=== PATIENT | male | born 1970 | race African-American/Black ===

== ENCOUNTER 2017-06-24 09:00 | Inpatient (IN) | payer MEDICAID ==
[~2017-06-24] VITALS: Ht 170.2 cm; Wt 90.9 kg
[2017-06-24 09:20] VITALS: Ht 170.2 cm; Wt 90.9 kg
[2017-06-24] MEDS ORDERED: SOD CHLORIDE 0.9% 1,000 ML IV STA (09:44)
--- NOTE | 2017-06-24 09:44 | ERA ---
ER Documentation Chief Complaint Date/Time DATE: 06/24/17 TIME: 09:41 Chief Complaint pt here for gtube malfunction and needs replacement HPI 47-year-old man brought in by EMS from long term for dislodged gastrostomy tube. Patient has chronic dysphagia and respiratory failure requiring tracheostomy placement although he agreed spontaneously on blow-by oxygen. Patient has history of stroke and bilateral upper and lower extremity paralysis and contractures, gastrostomy to dislodged earlier today. HPI supplemented by reviewing past medical history long term records. ROS All systems reviewed and are negative except as per history of present illness. Medications Home Meds Reported Medications Acetaminophen* (Acetaminophen* Susp) 160 Mg/5 Ml Oral.susp, 640 MG GTB Q4 Y for PAIN OR TEMP ABOVE 38C, ML 06/24/17 Hypromellose (Pure & Gentle Eye Drops) 15 Ml Drops, 1 DROP OP QID, BOTTLE 06/24/17 Sennosides* (Senna Lax*) 8.6 Mg Tablet, 2 TAB GTB QHS, TAB 06/24/17 Clonidine Hcl* (Clonidine Hcl*) 0.1 Mg Tab, 0.1 MG GTB Q8, TAB HOLD SBP<110 06/24/17 Docusate Sodium* (Colace*) 100 Mg Capsule, 100 MG GTB BID, #60 CAP 06/24/17 Atorvastatin Calcium (Atorvastatin Calcium) 10 Mg Tablet, 10 MG GTB QHS, #30 TAB 06/24/17 Metoprolol Tartrate* (Lopressor*) 50 Mg Tab, 50 MG GTB BID, #60 TAB 06/24/17 Clopidogrel Bisulfate (Clopidogrel) 75 Mg Tablet, 75 MG GTB DAILY, #30 TAB 06/24/17 Amlodipine Besylate* (Amlodipine Besylate*) 10 Mg Tablet, 10 MG GTB DAILY, #30 TAB HOLD SBP<110 06/24/17 Discontinued Reported Medications Eyelid Cleanser Combination #9 (Systane) 1 Each Towelette, 1 DROP BOTH EYES QID , TOWELETTE 06/24/17 Allergies Allergies: Coded Allergies: No Known Allergy (Unverified , 06/24/17) PMhx/Soc Dysphagia with gastrostomy tube, history of stroke with bilateral upper and lower extremity paresis and upper/lower extremity contractures, hypertension, encephalopathy, respiratory failure with a tracheostomy tube [facility] Family History: No diabetes Physical Exam Vitals Vital Signs Date Time Temp Pulse Resp B/P Pulse Ox O2 Delivery O2 Flow Rate FiO2 06/24/17 11:09 4.0 06/24/17 09:20 98.0 85 20 132/92 100 Physical Exam GENERAL: Encephalopathic man, appears dehydrated, nontoxic, afebrile HEENT: Dry mucous membranes, pink conjunctiva, no cervical spine deformity, tracheostomy in place NEURO: Eyes open, bilateral upper and lower extremity contractures and paresis, pupils equal round reactive to light, nonverbal, encephalopathic CARDIAC: Tachycardic and regular, no murmurs rubs or gallops LUNGS: Clear bilaterally no wheezing crackles or stridor ABDOMEN: Soft nontender, no guarding, no rigidity, no rebound, no psoas sign no obturator sign. SKIN: Warm and dry to touch, no abrasions, contusions, or hematomas, no lacerations, no ecchymosis, no target lesions, and without ulcers EXTREMITIES: Bilateral lower extremity contractures and diffuse muscular wasting , distal pulses equal bilateral PSYCH: Unable to assess Result Diagram: 06/24/17 1050 06/24/17 1011 Results 24 hrs Laboratory Tests Test 06/24/17 10:11 06/24/17 10:50 Prothrombin Time 12.7Sec Prothrombin Time Ratio 1.0 INR International Normalized Ratio 0.95 Sodium Level 140mmol/L Potassium Level 4.4mmol/L Chloride Level 102mmol/L Carbon Dioxide Level 29mmol/L Anion Gap 13 Blood Urea Nitrogen 19mg/dl Creatinine 0.87mg/dl Glucose Level 102mg/dl Calcium Level 9.5mg/dl Total Bilirubin 0.3mg/dl Direct Bilirubin 0.00mg/dl Indirect Bilirubin 0.3mg/dl Aspartate Amino Transf (AST/SGOT) 39IU/L Alanine Aminotransferase (ALT/SGPT) 43IU/L Alkaline Phosphatase 107IU/L Troponin I < 0.012ng/ml Total Protein 8.6g/dl Albumin 4.2g/dl Globulin 4.40g/dl Albumin/Globulin Ratio 0.95 Lipase 25U/L White Blood Count 8.310^3/ul Red Blood Count 5.1410^6/ul Hemoglobin 15.6g/dl Hematocrit 46.4% Mean Corpuscular Volume 90.3fl Mean Corpuscular Hemoglobin 30.4pg Mean Corpuscular Hemoglobin Concent 33.6g/dl Red Cell Distribution Width 11.9% Platelet Count 91686^3/UL Mean Platelet Volume 10.5fl Neutrophils % 71.0% Lymphocytes % 17.3% Monocytes % 8.2% Eosinophils % 2.5% Basophils % 0.6% Nucleated Red Blood Cells % 0.0/100WBC Neutrophils # 5.910^3/ul Lymphocytes # 1.410^3/ul Monocytes # 0.710^3/ul Eosinophils # 0.210^3/ul Basophils # 0.110^3/ul Nucleated Red Blood Cells # 0.010^3/ul Current Medications Medications (Trade) Dose Ordered Sig/Lissa Route PRN Reason Start Time Stop Time Status Last Admin Dose Admin Sodium Chloride (NS) 1,000 ml @ 1,000 mls/hr Q1H STAT IV 06/24/17 09:44 06/24/17 10:43 DC Procedures/MDM IV line was established patient was placed on awake overnight monitor rhythm strip revealed a sinus rhythm at about 90 bpm with upright P and T waves. Patient was afebrile. EKG performed, read by me revealed a normal sinus rhythm at 91 bpm, left axis deviation, narrow QRS complex, no concerning ST elevations or depressions noted. One AP view of the chest performed, read by me reveals no acute infiltrates, normal mediastinum, sharp costophrenic and cardiac borders, no air under the diaphragm. Tracheostomy in place. Otherwise unremarkable chest x-ray. I attempted gastrostomy tube replacement although I was unsuccessful, difficult to replace. I administered 1 L normal saline intravenously for dehydration. CBC and electrolytes are normal, liver function tests are normal, troponin was negative.Patient will be admitted to [facility] for continued medical management GI consultation, patient admitted to Dr. Sims Departure Diagnosis: Primary Impression: Acute encephalopathy Additional Impressions: Acute respiratory failure Qualified Code: J96.01 - Acute respiratory failure with hypoxia and hypercapnia Dysphagia Qualified Code: R13.10 - Dysphagia, unspecified type Dislodged gastrostomy tube Dehydration Condition: XAVI Damon MD Jun 24, 2017 09:44
[2017-06-24] MEDS ORDERED: AMLO-147 GTB (10:37)
[2017-06-24] MEDS ORDERED: CLOP75TA27 GTB (10:38)
[2017-06-24] MEDS ORDERED: METO-429 GTB (10:38)
[2017-06-24] MEDS ORDERED: ATOR10TA65 GTB (10:39)
[2017-06-24] MEDS ORDERED: DOCU-144 GTB (10:40)
[2017-06-24] MEDS ORDERED: CLON-379 GTB (10:41)
[2017-06-24] MEDS ORDERED: SENN-53 GTB (10:45)
[2017-06-24] MEDS ORDERED: [UNRECOGNIZED DRUG - CODE] OP (10:46)
[2017-06-24] MEDS ORDERED: ACET160O41 GTB (10:47)
[2017-06-24] MEDS ORDERED: EYEL1TOW3 BOTH EYES (10:47)
--- NOTE | 2017-06-24 10:55 | RADRPT ---
PROCEDURE: Chest Radiograph. CLINICAL INDICATION: Abdominal pain TECHNIQUE: Single frontal chest radiograph. COMPARISON: None available FINDINGS: A tracheostomy tube is in place. The patient is mildly rotated. The heart is magnified.. Lung volum es are decreased in there is mild left greater than right basilar atelectasis. No infiltrate or effu va is seen. The bones are intact. IMPRESSION: 1. Low lung volumes with basilar atelectasis. RPTAT: KK .Braeden Combs MD, Date Time Electronically viewed and signed by .Braeden Combs MD, MD on 06/24/2017 10:54 .B/
[2017-06-24 11:12] LABS: BASOPHIL # 0.1 10^3/ul (0.0-0.1); BASOPHILS % 0.6 % (0.0-2.0); EOSINOPHILS # 0.2 10^3/ul (0.0-0.5); EOSINOPHILS % 2.5 % (0.0-7.0); HEMATOCRIT 46.4 % (42.0-52.0); HEMOGLOBIN 15.6 g/dl (14.0-18.0); LYMPHOCYTES # 1.4 10^3/ul (0.8-2.9); LYMPHOCYTES % 17.3 % (15.0-51.0); MEAN CORPUSCULAR HEMOGLOBIN 30.4 pg (29.0-33.0); MEAN CORPUSCULAR HGB CONC 33.6 g/dl (32.0-37.0); MEAN CORPUSCULAR VOLUME 90.3 fl (82.0-101.0); MEAN PLATELET VOLUME 10.5 fl (7.4-10.4); MONOCYTE # 0.7 10^3/ul (0.3-0.9); MONOCYTES % 8.2 % (0.0-11.0); NEUTROPHIL # 5.9 10^3/ul (1.6-7.5); PLATELET COUNT 319 10^3/UL (140-415); RED BLOOD COUNT 5.14 10^6/ul (4.70-6.10); RED CELL DISTRIBUTION WIDTH 11.9 % (11.5-14.5); WHITE BLOOD COUNT 8.3 10^3/ul (4.8-10.8)
[2017-06-24 11:31] LABS: INR 0.95; PROTIME 12.7 Sec (12.2-14.2)
[2017-06-24 11:39] LABS: ALANINE AMINOTRANSFERASE 43 IU/L (13-69); ALBUMIN 4.2 g/dl (3.3-4.9); ALBUMIN/GLOBULIN RATIO 0.95; ALKALINE PHOSPHATASE 107 IU/L (42-121); ANION GAP 13 (8-16); ASPARTATE AMINO TRANSFERASE 39 IU/L (15-46); BILIRUBIN,INDIRECT 0.3 mg/dl (0-1.1); BILIRUBIN,TOTAL 0.3 mg/dl (0.2-1.3); BLOOD UREA NITROGEN 19 mg/dl (7-20); CALCIUM 9.5 mg/dl (8.4-10.2); CARBON DIOXIDE 29 mmol/L (21-31); CHLORIDE 102 mmol/L (97-110); CREATININE 0.87 mg/dl (0.61-1.24); GLUCOSE 102 mg/dl (70-220); POTASSIUM 4.4 mmol/L (3.5-5.1); SODIUM 140 mmol/L (135-144); TOTAL PROTEIN 8.6 g/dl (6.1-8.1)
[2017-06-24 11:53] LABS: TROPONIN-I < 0.012 ng/ml (0.00-0.12)
[2017-06-24] MEDS ORDERED: ONDANSETRON 4 MG INJ IV PRN (15:30)
[2017-06-24] MEDS ORDERED: ACETAMINOPHEN 1000MG/100ML IV 100 ML IVPB PRN (15:30)
--- NOTE | 2017-06-24 15:44 | HP ---
Date/Time of Note Date/Time of Note DATE: 06/24/17 TIME: 14:07 Assessment/Plan VTE Prophylaxis VTE Prophylaxis Intervention: SCD's Assessment/Plan Assessment/Plan Dysphagia with gastrostomy tube -Status post G-tube placement -Dislodged gastrostomy tube -Aspiration precautions -Admit to MedSurg -GI consult Dr. Mijares notified -We will hold off meds to be given via G-tube until get fixed -Admission orders are done -A.m. labs - respiratory failure with a tracheostomy tube - pulmonary consult- dr salgado notified - hypertension - hydralazine IV PRN - chronic kidney disease - stable labs -Acute encephalopathy-no acute issues continue to monitor -Acute respiratory failure-status post tracheostomy placement -We will get pulmonary consult, Dr. Robertson, notified -Dehydration-continues IV fluids, monitor labs - history of stroke with bilateral upper and lower extremity paresis and upper/ lower extremity contractures - SCD for DVT prophylaxis -Protonix for GI prophylaxis Plan of care discussed with Dr. Davis, staff HPI/ROS Admit Date/Time Admit Date/Time Hx of Present Illness This is a 47-year-old patient -SNF resident, with past history of respiratory failure with trach placement, chronic dysphagia , stroke, Bilateral upper and lower extremity paralysis and contractures is admitted with dislodged gastrostomy tube this morning. HPI supplemented by reviewing past medical history detention records. Patient is a poor historian due to his altered mental status. No reported fever, chills, vomiting reported ROS All systems reviewed and are negative except as per history of present illness. Allergies Allergies: Coded Allergies: No Known Allergy (Unverified , 06/24/17) ROS Subjective hx not possible: pt non-verbal PMH/Family/Social Past Medical History PMhx/Soc Dysphagia with gastrostomy tube, history of stroke with bilateral upper and lower extremity paresis and upper/lower extremity contractures, hypertension, encephalopathy, respiratory failure with a tracheostomy tube chronic kidney disease FmHx Family History: No diabetes Social History Smoking Status: Never smoker Exam/Review of Systems Vital Signs Vitals Vital Signs Date Time Temp Pulse Resp B/P Pulse Ox O2 Delivery O2 Flow Rate FiO2 06/24/17 11:09 4.0 06/24/17 09:20 98.0 85 20 132/92 100 Exam Constitutional: alert, non-verbal, other (Opens eyes only, does not follow commands) Respiratory: diminished breath sounds, other (Trach intact) Cardiovascular: nl pulses, regular rate and rhythm Gastrointestinal: non-tender, soft Musculoskeletal: muscle weakness Extremities: normal pulses Neurological: confused, other (history of stroke and bilateral upper and lower extremity paralysis and contractures) Labs Result Diagram: 06/24/17 1050 06/24/17 1011 TANYA FERNANDEZ Jun 24, 2017 15:25
[2017-06-24 15:49] VITALS: TEMP 99.1
[2017-06-24 16:24] VITALS: BP 137/91; RESP 22
[2017-06-24 16:40] VITALS: BP 124/76; PULSE 94; RESP 18
[2017-06-24] MEDS: FAMOTIDINE 20 MG INJ IV SCH (17:33)
[2017-06-24] MEDS: DEXTROSE 5%-0.45% NACL 1,000 ML IV SCH (17:35)
[2017-06-24] MEDS ORDERED: PENDING SANTYL ORDER FOR WOUND CARE XX PRN (18:00)
[2017-06-24 20:04] VITALS: BP 113/68; RESP 20
[2017-06-25 02:00] VITALS: BP 151/81; RESP 20
[2017-06-25] MEDS: DEXTROSE 5%-0.45% NACL 1,000 ML IV SCH ×4 (06:59→20:42)
[2017-06-25 07:59] VITALS: BP 122/78; RESP 18
[2017-06-25] MEDS: FAMOTIDINE 20 MG INJ IV SCH ×3 (08:35→20:41)
[2017-06-25 08:53] LABS: BASOPHIL # 0.1 10^3/ul (0.0-0.1); EOSINOPHILS # 0.2 10^3/ul (0.0-0.5); EOSINOPHILS % 4.1 % (0.0-7.0); HEMOGLOBIN 14.1 g/dl (14.0-18.0); LYMPHOCYTES # 1.5 10^3/ul (0.8-2.9); LYMPHOCYTES % 28.2 % (15.0-51.0); MEAN CORPUSCULAR HEMOGLOBIN 29.9 pg (29.0-33.0); MEAN CORPUSCULAR VOLUME 93.4 fl (82.0-101.0); MEAN PLATELET VOLUME 10.8 fl (7.4-10.4); MONOCYTE # 0.7 10^3/ul (0.3-0.9); NEUTROPHIL # 2.8 10^3/ul (1.6-7.5); NEUTROPHILS % 53.3 % (39.0-77.0); PLATELET COUNT 269 10^3/UL (140-415); RED BLOOD COUNT 4.71 10^6/ul (4.70-6.10); RED CELL DISTRIBUTION WIDTH 12.3 % (11.5-14.5); WHITE BLOOD COUNT 5.2 10^3/ul (4.8-10.8)
[2017-06-25 09:22] LABS: CALCIUM 9.1 mg/dl (8.4-10.2); POTASSIUM 4.2 mmol/L (3.5-5.1)
[2017-06-25] MEDS ORDERED: LIDOCAINE 1% (MPF) 5 ML VIAL SC ONE ×2 (11:30→12:30)
[2017-06-25 14:50] VITALS: BP 123/83; RESP 18
--- NOTE | 2017-06-25 17:31 | PN ---
Date/Time of Note Date/Time of Note DATE: 06/25/17 TIME: 17:24 Assessment/Plan VTE Prophylaxis VTE Prophylaxis Intervention: SCD's Lines/Catheters IV [facility] Peripheral IV Urinary Cath still in place: No Assessment/Plan Chief Complaint/Hosp Course Patient remains hemodynamically stable, IV access is a problem per nursing staff , if unable to obtain peripheral IV will initiate PICC line for IV fluids. Problems: Assessment/Plan -G-tube dislodgment and patient with dysphagia. Continue IV fluids. Dr. Mijares is following in gastroenterology consultation. Pending G-tube placement. -History of stroke with contractures and chronic encephalopathy -History of respiratory failure with tracheostomy, continue cool aerosol via T- tube, continue breathing treatments -Chronic kidney disease Further recommendations based on clinical course. Plan of care discussed with Dr. Sims. Exam/Review of Systems Vital Signs Vitals Vital Signs Date Time Temp Pulse Resp B/P Pulse Ox O2 Delivery O2 Flow Rate FiO2 06/25/17 14:50 98.3 69 18 123/83 99 06/25/17 12:48 Aerosol 5.0 28 T Tube Intake and Output 06/24/17 06/24/17 06/25/17 15:00 23:00 07:00 Intake Total 800 ml Balance 800 ml Exam Constitutional: non-verbal Head: normocephalic Neck: other (trach) Respiratory: normal air movement Cardiovascular: nl pulses Gastrointestinal: non-tender, other (G-tube stoma), soft Extremities: other (contracted) Neurological: other (Chronic encephalopathy) Results Result Diagram: 06/25/17 0825 06/25/17 0825 Results 24 hrs Laboratory Tests Test 06/25/17 08:25 White Blood Count 5.2 # Red Blood Count 4.71 Hemoglobin 14.1 Hematocrit 44.0 Mean Corpuscular Volume 93.4 Mean Corpuscular Hemoglobin 29.9 Mean Corpuscular Hemoglobin Concent 32.0 Red Cell Distribution Width 12.3 Platelet Count 269 Mean Platelet Volume 10.8 H Neutrophils % 53.3 Lymphocytes % 28.2 Monocytes % 13.0 H Eosinophils % 4.1 Basophils % 1.0 Nucleated Red Blood Cells % 0.0 Neutrophils # 2.8 Lymphocytes # 1.5 Monocytes # 0.7 Eosinophils # 0.2 Basophils # 0.1 Nucleated Red Blood Cells # 0.0 Sodium Level 138 Potassium Level 4.2 Chloride Level 106 Carbon Dioxide Level 27 Anion Gap 9 Blood Urea Nitrogen 16 Creatinine 1.00 Glucose Level 94 Calcium Level 9.1 Medications Medications Current Medications Ondansetron HCl 4 mg 4 mg Q6 PRN IV NAUSEA AND/OR VOMITING; Start 06/24/17 at 15:30 Acetaminophen (Ofirmev 1000mg/ 100ml Iv) 100 ml @ 400 mls/hr Q6H PRN IVPB FEVER GREATER THAN 100.6; Start 06/24/17 at 15:30 Hydralazine HCl (Apresoline) 10 mg Q6 PRN IV ELEVATED BLOOD PRESSURE; Start at 15:30 Famotidine 20 mg 20 mg BID IV Last administered on 06/24/17 17:33; Admin Dose 20 MG; Start 06/24/17 at 17:00 Dextrose/Sodium Chloride (D5-1/2ns) 1,000 ml @ 70 mls/hr [id number] IV Last administered on 06/24/17 17:35; Admin Dose 70 MLS/HR; Start 06/24/17 at 17:00 Miscellaneous Information (Pending Santyl Order For Wound Care) This patient hull... PRN PRN XX WOUND CARE; Start 06/24/17 at 18:00 RAFAT MADDOX Jun 25, 2017 17:31
--- NOTE | 2017-06-25 18:04 | RADRPT ---
PROCEDURE: XR Chest. CLINICAL INDICATION: Left PICC placement TECHNIQUE: Portable AP chest x-ray. COMPARISON: 06/24/2017 FINDINGS: There is interval placement of a left PICC with the tip at the superior cavoatrial junction. There i s no evidence of pneumothorax. Otherwise, there is no significant interval change. Lungs remain hypo inflated with mild central vascular crowding. Tracheostomy is in place. Osseous structures are gross ly intact. IMPRESSION: Interval placement of left PICC with the tip at the cavoatrial junction. No evidence of pneumothorax . Otherwise, no significant interval change. RPTAT: QQ .Nadeem Magaña MD, MD Date Time Electronically viewed and signed by .Nadeem Magaña MD, MD on 06/25/2017 18:04 .A/
--- NOTE | 2017-06-25 18:42 | RADRPT ---
PROCEDURE: US guidance for PICC line CLINICAL INDICATION: PICC line placement TECHNIQUE: Multiple real-time images were acquired of the patient's arm utilizing a high resolutio n transducer. This was performed by the PICC line nurse for venous access. COMPARISON: None FINDINGS: Ultrasound guidance for PICC line placement. IMPRESSION: Ultrasound guidance for PICC line placement. RPTAT: AA .Miles Wilkerson MD, MD Date Time Electronically viewed and signed by .Miles Wilkerson MD, on 06/25/2017 18:42 .S/
--- NOTE | 2017-06-25 19:24 | CONS ---
DATE OF ADMISSION: 06/24/2017 DATE OF CONSULTATION: 06/25/2017 REASON FOR CONSULTATION: Chronic respiratory failure. HISTORY OF PRESENT ILLNESS: This is an unfortunate 47-year-old gentleman with a history of respiratory failure with tracheostomy. Prior history of CVA with G-tube dislodgement. Transferred for G-tube replacement. The patient unable to give me further details. The he has history of chronic encephalopathy in addition to medical problems mentioned above. PAST MEDICAL HISTORY: As above. MEDICATION: Per chart. ALLERGIES: NONE. SOCIAL HISTORY: Nonsmoker. No alcohol. No history of drug use. FAMILY HISTORY: Noncontributory. REVIEW OF SYSTEMS: A 12-point review of systems, unable to perform. PHYSICAL EXAMINATION: GENERAL: On examination, chronically ill-appearing gentleman, appears comfortable at rest. No acute distress. VITAL SIGNS: Currently afebrile. Pulse is. He is 69, blood pressure 123/83. O2 saturation 96 percent on cool aerosol. NECK: Supple. No JVD, no lymphadenopathy. HEART: S1, S2. No added sounds or murmurs. CHEST: Diminished air entry bilaterally. ABDOMEN: Soft, nontender. No guarding or rebound. EXTREMITIES: No cyanosis, clubbing or edema. NEUROLOGICALLY: Generalized weakness. LABORATORY: CBC, chem 7 within normal limits. INR 0.95. IMPRESSION: 1. Dislodged gastrostomy tube. 2. Chronic respiratory failure. 3. Chest x-ray demonstrating low lung volumes. 4. History of encephalopathy per chart. PLAN: 1. Recommend replacement of G tube. 2. Continue pulmonary toilet. 3. Discharge back to residential facility. Dictated By: Brock Sylvester MD /caroline/edwardo /Document#: [id number]
[2017-06-25 20:00] VITALS: BP 178/105; RESP 20
[2017-06-25] MEDS: hydrALAzine 20 MG INJ IV PRN (20:02)
[2017-06-25 20:43] VITALS: BP 120/62; PULSE 105
--- NOTE | 2017-06-26 01:30 | CONS ---
DATE OF ADMISSION: 06/24/2017 DATE OF CONSULTATION: 06/25/2017 SUBJECTIVE: The patient is a 47-year-old patient of retirement, vent-dependent respiratory failure, chronic dysphagia, stroke, contracture of both the upper and lower extremity, admitted to the hospital for dislodgement of the J-tube. GI consult was called in to evaluate and possibly replace the J- tube. The patient is nonverbal and cannot give any history. No chest pain. No shortness of breath. As per the chart. No abdominal pain. No nausea or vomiting. ALLERGIES: NONE. REVIEW OF SYSTEMS: Unable to do. PAST MEDICAL HISTORY: As described. FAMILY HISTORY: Nothing contributory. PHYSICAL EXAMINATION: GENERAL: Nonverbal. LUNGS: The patient has got a trach. No wheeze. ABDOMEN: Benign. EXTREMITIES: All contracted. NEUROLOGY: The patient does not communicate. LABORATORY: Hematocrit is 46, WBCs 8.3. CMP is grossly within normal limits. ASSESSMENT: 1. Dislodgement of the J-tube. 2. Cerebrovascular accident. 3. Contracted extremity. 4. Respiratory failure status post trach, will replace J-tube. 5. Chronic kidney disease. PLAN: Follow up. Replace the J-tube in the morning. If I am unable to pass the replacement J-tube, then we will have to do it endoscopically. Dictated By: Daniel Mijares MD /caroline/mike /Document#: [id number]
[2017-06-26 02:00] VITALS: BP 146/80; RESP 20
[2017-06-26 06:11] LABS: BASOPHIL # 0.1 10^3/ul (0.0-0.1); BASOPHILS % 1.2 % (0.0-2.0); EOSINOPHILS # 0.2 10^3/ul (0.0-0.5); EOSINOPHILS % 3.3 % (0.0-7.0); HEMATOCRIT 42.8 % (42.0-52.0); HEMOGLOBIN 13.8 g/dl (14.0-18.0); LYMPHOCYTES # 1.4 10^3/ul (0.8-2.9); MEAN CORPUSCULAR HEMOGLOBIN 30.1 pg (29.0-33.0); MEAN CORPUSCULAR HGB CONC 32.2 g/dl (32.0-37.0); MEAN CORPUSCULAR VOLUME 93.2 fl (82.0-101.0); MEAN PLATELET VOLUME 11.3 fl (7.4-10.4); MONOCYTE # 0.9 10^3/ul (0.3-0.9); NEUTROPHIL # 3.2 10^3/ul (1.6-7.5); NEUTROPHILS % 56.2 % (39.0-77.0); PLATELET COUNT 271 10^3/UL (140-415); RED BLOOD COUNT 4.59 10^6/ul (4.70-6.10); RED CELL DISTRIBUTION WIDTH 12.3 % (11.5-14.5); WHITE BLOOD COUNT 5.7 10^3/ul (4.8-10.8)
[2017-06-26 06:59] LABS: CALCIUM 8.9 mg/dl (8.4-10.2); CREATININE 0.93 mg/dl (0.61-1.24); POTASSIUM 3.8 mmol/L (3.5-5.1)
[2017-06-26 08:01] VITALS: BP 138/85; RESP 18
[2017-06-26] MEDS: FAMOTIDINE 20 MG INJ IV SCH ×2 (09:50→21:04)
[2017-06-26] MEDS: DEXTROSE 5%-0.45% NACL 1,000 ML IV SCH (11:35)
--- NOTE | 2017-06-26 12:00 | CONS ---
Date/Time of Note Date/Time of Note DATE: 06/26/17 TIME: 11:59 Assessment/Plan Assessment/Plan Additional Assessment/Plan Recommendations; 1. Patient with history of chronic respiratory failure doing fairly well on tracheal T piece admitted for G-tube dislodgment. Continue current supportive care. Consultation Date/Type/Reason Admit Date/Time Jun 24, 2017 at 09:57 Initial Consult Date Type of Consultation: Pulmonary 24 HR Interval Summary Free Text/Dictation Patient's condition remains stable. Remains awake but unresponsive. She has remained hemodynamically stable. No untoward events reported. General exam; young male, on T piece via tracheostomy, awake, but unresponsive to any commands. Currently in no distress. Exam/Review of Systems Vital Signs Vitals Vital Signs Date Time Temp Pulse Resp B/P Pulse Ox O2 Delivery O2 Flow Rate FiO2 06/26/17 08:08 5.0 28 06/26/17 08:06 103 18 100 Aerosol T Tube 06/26/17 08:01 98.1 138/85 Intake and Output 06/25/17 06/25/17 06/26/17 15:00 23:00 07:00 Intake Total 200 ml 700 ml Balance 200 ml 700 ml Exam HEENT exam; supple neck, no JVD. No lymphadenopathy. Midline trachea. No thyromegaly. Tracheostomy in place. Chest exam; clear to auscultation. S1-S2 audible, no murmurs. Regular rhythm. Abdomen exam; soft, no organomegaly. G-tube in place. Extremity exam; no edema. Patient does have contractures involving all 4 extremities. 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 Results Result Diagram: 06/26/17 0515 06/26/17 0527 Results 24 hrs Laboratory Tests Test 06/26/17 05:15 06/26/17 05:27 White Blood Count 5.7 Red Blood Count 4.59 L Hemoglobin 13.8 L Hematocrit 42.8 Mean Corpuscular Volume 93.2 Mean Corpuscular Hemoglobin 30.1 Mean Corpuscular Hemoglobin Concent 32.2 Red Cell Distribution Width 12.3 Platelet Count 271 Mean Platelet Volume 11.3 H Neutrophils % 56.2 Lymphocytes % 24.0 Monocytes % 15.0 H Eosinophils % 3.3 Basophils % 1.2 Nucleated Red Blood Cells % 0.0 Neutrophils # 3.2 Lymphocytes # 1.4 Monocytes # 0.9 Eosinophils # 0.2 Basophils # 0.1 Nucleated Red Blood Cells # 0.0 Sodium Level 141 Potassium Level 3.8 Chloride Level 106 Carbon Dioxide Level 26 Anion Gap 13 Blood Urea Nitrogen 15 Creatinine 0.93 Glucose Level 103 Calcium Level 8.9 Medications Medications Current Medications Ondansetron HCl 4 mg 4 mg Q6 PRN IV NAUSEA AND/OR VOMITING; Start 06/24/17 at 15:30 Acetaminophen (Ofirmev 1000mg/ 100ml Iv) 100 ml @ 400 mls/hr Q6H PRN IVPB FEVER GREATER THAN 100.6; Start 06/24/17 at 15:30 Hydralazine HCl (Apresoline) 10 mg Q6 PRN IV ELEVATED BLOOD PRESSURE Last administered on 06/25/17 20:02; Admin Dose 10 MG; Start 06/24/17 at 15:30 Famotidine 20 mg 20 mg BID IV Last administered on 06/26/17 09:50; Admin Dose 20 MG; Start 06/24/17 at 17:00 Dextrose/Sodium Chloride (D5-1/2ns) 1,000 ml @ 70 mls/hr [id number] IV Last administered on 06/26/17 11:35; Admin Dose 70 MLS/HR; Start 06/24/17 at 17:00 Miscellaneous Information (Pending Santyl Order For Wound Care) This patient hull... PRN PRN XX WOUND CARE; Start 06/24/17 at 18:00 IV Flush (NS 10 ml) 10 ml PRN PRN IV IV PROTOCOL; Start 06/25/17 at 19:00 RIMA ESQUIVEL Jun 26, 2017 12:00
--- NOTE | 2017-06-26 13:11 | CONS ---
Date/Time of Note Date/Time of Note DATE: 06/26/17 TIME: 13:10 Assessment/Plan Assessment/Plan Additional Assessment/Plan ASSESSMENT: 1. Dislodgement of the J-tube. 2. Cerebrovascular accident. 3. Contracted extremity. 4. Respiratory failure status post trach, will replace J-tube. 5. Chronic kidney disease. Plan Placement of gastrostomy tube endoscopically. The opening is completely obliterated. Awaiting for the consent from the family Consultation Date/Type/Reason Admit Date/Time Jun 24, 2017 at 09:57 Initial Consult Date Type of Consultation: Pulmonary 24 HR Interval Summary Constitutional: no complaints Exam/Review of Systems Vital Signs Vitals Vital Signs Date Time Temp Pulse Resp B/P Pulse Ox O2 Delivery O2 Flow Rate FiO2 06/26/17 12:23 96 18 100 Aerosol 5.0 28 T Tube 06/26/17 08:01 98.1 138/85 Intake and Output 06/25/17 06/25/17 06/26/17 15:00 23:00 07:00 Intake Total 200 ml 700 ml Balance 200 ml 700 ml Exam Constitutional: alert, oriented, well developed Psych: nl mood/affect, no complaints Head: atraumatic, normocephalic Eyes: EOMI, PERRL, nl conjunctiva, nl lids, nl sclera ENMT: nl external ears & nose, nl lips & teeth, nl nasal mucosa & septum Neck: non-tender, supple Respiratory: clear to auscultation, normal air movement Cardiovascular: nl pulses, regular rate and rhythm Gastrointestinal: nl liver, spleen, non-tender, soft Musculoskeletal: nl extremities to inspection, nl gait and stance Extremities: normal pulses Neurological: GROUND LAYER II-XII intact, nl mental status, nl speech, nl strength Skin: nl turgor, No rash or lesions Lymph: nl lymph nodes Results Result Diagram: 06/26/17 0515 06/26/17 0527 Results 24 hrs Laboratory Tests Test 06/26/17 05:15 06/26/17 05:27 White Blood Count 5.7 Red Blood Count 4.59 L Hemoglobin 13.8 L Hematocrit 42.8 Mean Corpuscular Volume 93.2 Mean Corpuscular Hemoglobin 30.1 Mean Corpuscular Hemoglobin Concent 32.2 Red Cell Distribution Width 12.3 Platelet Count 271 Mean Platelet Volume 11.3 H Neutrophils % 56.2 Lymphocytes % 24.0 Monocytes % 15.0 H Eosinophils % 3.3 Basophils % 1.2 Nucleated Red Blood Cells % 0.0 Neutrophils # 3.2 Lymphocytes # 1.4 Monocytes # 0.9 Eosinophils # 0.2 Basophils # 0.1 Nucleated Red Blood Cells # 0.0 Sodium Level 141 Potassium Level 3.8 Chloride Level 106 Carbon Dioxide Level 26 Anion Gap 13 Blood Urea Nitrogen 15 Creatinine 0.93 Glucose Level 103 Calcium Level 8.9 Medications Medications Current Medications Ondansetron HCl 4 mg 4 mg Q6 PRN IV NAUSEA AND/OR VOMITING; Start 06/24/17 at 15:30 Acetaminophen (Ofirmev 1000mg/ 100ml Iv) 100 ml @ 400 mls/hr Q6H PRN IVPB FEVER GREATER THAN 100.6; Start 06/24/17 at 15:30 Hydralazine HCl (Apresoline) 10 mg Q6 PRN IV ELEVATED BLOOD PRESSURE Last administered on 06/25/17 20:02; Admin Dose 10 MG; Start 06/24/17 at 15:30 Famotidine 20 mg 20 mg BID IV Last administered on 06/26/17 09:50; Admin Dose 20 MG; Start 06/24/17 at 17:00 Dextrose/Sodium Chloride (D5-1/2ns) 1,000 ml @ 70 mls/hr [id number] IV Last administered on 06/26/17 11:35; Admin Dose 70 MLS/HR; Start 06/24/17 at 17:00 Miscellaneous Information (Pending Santyl Order For Wound Care) This patient hull... PRN PRN XX WOUND CARE; Start 06/24/17 at 18:00 IV Flush (NS 10 ml) 10 ml PRN PRN IV IV PROTOCOL; Start 06/25/17 at 19:00 ROSANA MIRELES MD Jun 26, 2017 13:11
[2017-06-26 14:00] VITALS: BP 144/89; RESP 18
--- NOTE | 2017-06-26 17:10 | PN ---
Date/Time of Note Date/Time of Note DATE: 06/26/17 TIME: 17:06 Assessment/Plan VTE Prophylaxis VTE Prophylaxis Intervention: SCD's Lines/Catheters IV Catheter Type (from Nrsg): PICC Line Central line still needed: Yes Urinary Cath still in place: No Assessment/Plan Assessment/Plan -G-tube dislodgment and patient with dysphagia. Continue IV fluids. Dr. Mijares is following in gastroenterology consultation. Pending G-tube placement. -History of stroke with contractures and chronic encephalopathy -History of respiratory failure with tracheostomy, continue cool aerosol via T- tube, continue breathing treatments -Chronic kidney disease Further recommendations based on clinical course. Plan of care discussed with Dr. Sims. Subjective 24 Hr Interval Summary Free Text/Dictation GT placement pending- possible tomorrow or Wednesday, afebrile, dw staff. Constitutional: requiring IVF, requiring O2 Exam/Review of Systems Vital Signs Vitals Vital Signs Date Time Temp Pulse Resp B/P Pulse Ox O2 Delivery O2 Flow Rate FiO2 06/26/17 17:02 5.0 06/26/17 16:02 101 20 100 Aerosol 28 T Tube 06/26/17 14:00 98.7 144/89 Intake and Output 06/25/17 06/25/17 06/26/17 15:00 23:00 07:00 Intake Total 200 ml 700 ml Balance 200 ml 700 ml Exam Constitutional: alert Respiratory: clear to auscultation, normal air movement Cardiovascular: nl pulses, regular rate and rhythm Musculoskeletal: muscle weakness Neurological: confused Results Result Diagram: 06/26/17 0515 06/26/17 0527 Results 24 hrs Laboratory Tests Test 06/26/17 05:15 06/26/17 05:27 White Blood Count 5.7 Red Blood Count 4.59 L Hemoglobin 13.8 L Hematocrit 42.8 Mean Corpuscular Volume 93.2 Mean Corpuscular Hemoglobin 30.1 Mean Corpuscular Hemoglobin Concent 32.2 Red Cell Distribution Width 12.3 Platelet Count 271 Mean Platelet Volume 11.3 H Neutrophils % 56.2 Lymphocytes % 24.0 Monocytes % 15.0 H Eosinophils % 3.3 Basophils % 1.2 Nucleated Red Blood Cells % 0.0 Neutrophils # 3.2 Lymphocytes # 1.4 Monocytes # 0.9 Eosinophils # 0.2 Basophils # 0.1 Nucleated Red Blood Cells # 0.0 Sodium Level 141 Potassium Level 3.8 Chloride Level 106 Carbon Dioxide Level 26 Anion Gap 13 Blood Urea Nitrogen 15 Creatinine 0.93 Glucose Level 103 Calcium Level 8.9 Medications Medications Current Medications Ondansetron HCl 4 mg 4 mg Q6 PRN IV NAUSEA AND/OR VOMITING; Start 06/24/17 at 15:30 Acetaminophen (Ofirmev 1000mg/ 100ml Iv) 100 ml @ 400 mls/hr Q6H PRN IVPB FEVER GREATER THAN 100.6; Start 06/24/17 at 15:30 Hydralazine HCl (Apresoline) 10 mg Q6 PRN IV ELEVATED BLOOD PRESSURE Last administered on 06/25/17 20:02; Admin Dose 10 MG; Start 06/24/17 at 15:30 Famotidine 20 mg 20 mg BID IV Last administered on 06/26/17 09:50; Admin Dose 20 MG; Start 06/24/17 at 17:00 Dextrose/Sodium Chloride (D5-1/2ns) 1,000 ml @ 70 mls/hr [id number] IV Last administered on 06/26/17 11:35; Admin Dose 70 MLS/HR; Start 06/24/17 at 17:00 Miscellaneous Information (Pending Santyl Order For Wound Care) This patient hull... PRN PRN XX WOUND CARE; Start 06/24/17 at 18:00 IV Flush (NS 10 ml) 10 ml PRN PRN IV IV PROTOCOL; Start 06/25/17 at 19:00 TANYA FERNANDEZ Jun 26, 2017 17:10
[2017-06-26 20:39] VITALS: BP 161/104; RESP 18
[2017-06-26 21:06] VITALS: BP 111/71; RESP 20
[2017-06-27] MEDS: DEXTROSE 5%-0.45% NACL 1,000 ML IV SCH ×2 (03:34→18:14)
[2017-06-27 05:31] LABS: BASOPHIL # 0.1 10^3/ul (0.0-0.1); EOSINOPHILS # 0.3 10^3/ul (0.0-0.5); EOSINOPHILS % 4.9 % (0.0-7.0); HEMATOCRIT 42.6 % (42.0-52.0); LYMPHOCYTES # 1.5 10^3/ul (0.8-2.9); LYMPHOCYTES % 23.4 % (15.0-51.0); MEAN CORPUSCULAR HEMOGLOBIN 30.3 pg (29.0-33.0); MEAN CORPUSCULAR HGB CONC 32.9 g/dl (32.0-37.0); MEAN CORPUSCULAR VOLUME 92.2 fl (82.0-101.0); MEAN PLATELET VOLUME 10.6 fl (7.4-10.4); MONOCYTE # 0.9 10^3/ul (0.3-0.9); MONOCYTES % 13.5 % (0.0-11.0); NEUTROPHIL # 3.6 10^3/ul (1.6-7.5); PLATELET COUNT 270 10^3/UL (140-415); RED BLOOD COUNT 4.62 10^6/ul (4.70-6.10); RED CELL DISTRIBUTION WIDTH 12.1 % (11.5-14.5); WHITE BLOOD COUNT 6.3 10^3/ul (4.8-10.8)
[2017-06-27 05:47] LABS: CALCIUM 9.2 mg/dl (8.4-10.2); CREATININE 1.05 mg/dl (0.61-1.24); POTASSIUM 3.6 mmol/L (3.5-5.1)
[2017-06-27 08:15] VITALS: BP 142/81; RESP 18
[2017-06-27] MEDS: FAMOTIDINE 20 MG INJ IV SCH ×2 (09:03→20:58)
--- NOTE | 2017-06-27 14:28 | CONS ---
Date/Time of Note Date/Time of Note DATE: 06/27/17 TIME: 14:28 Assessment/Plan Assessment/Plan Additional Assessment/Plan ASSESSMENT: 1. Dislodgement of the J-tube. 2. Cerebrovascular accident. 3. Contracted extremity. 4. Respiratory failure status post trach, will replace J-tube. 5. Chronic kidney disease. Plan Placement of gastrostomy tube endoscopically. The opening is completely obliterated. Awaiting for the consent from the family Consent is obtained and will proceed with the placement of G-tube tomorrow Consultation Date/Type/Reason Admit Date/Time Jun 24, 2017 at 09:57 Type of Consultation: Pulmonary 24 HR Interval Summary Subjective hx not possible: pt non-verbal Constitutional: no complaints Exam/Review of Systems Vital Signs Vitals Vital Signs Date Time Temp Pulse Resp B/P Pulse Ox O2 Delivery O2 Flow Rate FiO2 06/27/17 12:09 116 20 100 Aerosol 5.0 28 T Tube 06/27/17 08:15 98.1 142/81 Intake and Output 06/26/17 06/26/17 06/27/17 15:00 23:00 07:00 Intake Total 300 ml 300 ml 840 ml Balance 300 ml 300 ml 840 ml Exam Constitutional: alert, oriented, well developed Psych: nl mood/affect, no complaints Head: atraumatic, normocephalic Eyes: EOMI, PERRL, nl conjunctiva, nl lids, nl sclera ENMT: nl external ears & nose, nl lips & teeth, nl nasal mucosa & septum Neck: non-tender, supple Respiratory: clear to auscultation, normal air movement Cardiovascular: nl pulses, regular rate and rhythm Gastrointestinal: nl liver, spleen, non-tender, soft Musculoskeletal: nl extremities to inspection, nl gait and stance Extremities: normal pulses Neurological: SAMPLING EXPERT II-XII intact, nl mental status, nl speech, nl strength Skin: nl turgor, No rash or lesions Lymph: nl lymph nodes Results Result Diagram: 06/27/17 0507 06/27/17 0445 Results 24 hrs Laboratory Tests Test 06/27/17 04:45 06/27/17 05:07 Sodium Level 139 Potassium Level 3.6 Chloride Level 106 Carbon Dioxide Level 28 Anion Gap 9 Blood Urea Nitrogen 11 Creatinine 1.05 Glucose Level 107 Calcium Level 9.2 White Blood Count 6.3 Red Blood Count 4.62 L Hemoglobin 14.0 Hematocrit 42.6 Mean Corpuscular Volume 92.2 Mean Corpuscular Hemoglobin 30.3 Mean Corpuscular Hemoglobin Concent 32.9 Red Cell Distribution Width 12.1 Platelet Count 270 Mean Platelet Volume 10.6 H Neutrophils % 57.0 Lymphocytes % 23.4 Monocytes % 13.5 H Eosinophils % 4.9 Basophils % 1.0 Nucleated Red Blood Cells % 0.0 Neutrophils # 3.6 Lymphocytes # 1.5 Monocytes # 0.9 Eosinophils # 0.3 Basophils # 0.1 Nucleated Red Blood Cells # 0.0 Medications Medications Current Medications Ondansetron HCl 4 mg 4 mg Q6 PRN IV NAUSEA AND/OR VOMITING; Start 06/24/17 at 15:30 Acetaminophen (Ofirmev 1000mg/ 100ml Iv) 100 ml @ 400 mls/hr Q6H PRN IVPB FEVER GREATER THAN 100.6; Start 06/24/17 at 15:30 Hydralazine HCl (Apresoline) 10 mg Q6 PRN IV ELEVATED BLOOD PRESSURE Last administered on 06/25/17 20:02; Admin Dose 10 MG; Start 06/24/17 at 15:30 Famotidine 20 mg 20 mg BID IV Last administered on 06/27/17 09:03; Admin Dose 20 MG; Start 06/24/17 at 17:00 Dextrose/Sodium Chloride (D5-1/2ns) 1,000 ml @ 70 mls/hr [id number] IV Last administered on 06/27/17 03:34; Admin Dose 70 MLS/HR; Start 06/24/17 at 17:00 Miscellaneous Information (Pending Santyl Order For Wound Care) This patient hull... PRN PRN XX WOUND CARE; Start 06/24/17 at 18:00 IV Flush (NS 10 ml) 10 ml PRN PRN IV IV PROTOCOL; Start 06/25/17 at 19:00 ROSANA MIRELES MD Jun 27, 2017 14:28
[2017-06-27 15:18] VITALS: BP 162/99; RESP 18
[2017-06-27 20:26] VITALS: BP 137/77; RESP 18
[2017-06-28] VITALS (7 sets, daily range): BP systolic 139–178; BP diastolic 78–97; PULSE 59–83; RESP 18
[2017-06-28] MEDS: hydrALAzine 20 MG INJ IV PRN ×2 (02:55→20:21)
[2017-06-28] MEDS: DEXTROSE 5%-0.45% NACL 1,000 ML IV SCH ×3 (06:28→21:06)
[2017-06-28] MEDS: FAMOTIDINE 20 MG INJ IV SCH ×2 (08:41→20:21)
--- NOTE | 2017-06-28 14:09 | CONS ---
Date/Time of Note Date/Time of Note DATE: 06/28/17 TIME: 14:08 Assessment/Plan Assessment/Plan Additional Assessment/Plan Assessment/Plan Additional Assessment/Plan ASSESSMENT: 1. Dislodgement of the J-tube. 2. Cerebrovascular accident. 3. Contracted extremity. 4. Respiratory failure status post trach, will replace J-tube. 5. Chronic kidney disease. Plan Placement of gastrostomy tube endoscopically. The opening is completely obliterated. Awaiting for the consent from the family Consent is obtained and will proceed with the placement of G-tube tomorrow GI lab could not accommodate today hopefully it will be done tomorrow Consultation Date/Type/Reason Admit Date/Time Jun 24, 2017 at 09:57 Type of Consultation: Pulmonary 24 HR Interval Summary Subjective hx not possible: pt non-verbal Exam/Review of Systems Vital Signs Vitals Vital Signs Date Time Temp Pulse Resp B/P Pulse Ox O2 Delivery O2 Flow Rate FiO2 06/28/17 14:04 94 20 98 Aerosol 5.0 28 06/28/17 08:02 99.0 143/78 Intake and Output 06/27/17 06/27/17 06/28/17 15:00 23:00 07:00 Intake Total 860 ml 1000 ml Balance 860 ml 1000 ml Exam Constitutional: alert, oriented, well developed Psych: nl mood/affect, no complaints Head: atraumatic, normocephalic Eyes: EOMI, PERRL, nl conjunctiva, nl lids, nl sclera ENMT: nl external ears & nose, nl lips & teeth, nl nasal mucosa & septum Neck: non-tender, supple Respiratory: clear to auscultation, normal air movement Cardiovascular: nl pulses, regular rate and rhythm Gastrointestinal: nl liver, spleen, non-tender, soft Musculoskeletal: nl extremities to inspection, nl gait and stance Extremities: normal pulses Neurological: INDUSTRIAL CHEMICALS SUPERVISOR II-XII intact, nl mental status, nl speech, nl strength Skin: nl turgor, No rash or lesions Lymph: nl lymph nodes Results Result Diagram: 06/27/17 0507 06/27/17 0445 Medications Medications Current Medications Ondansetron HCl 4 mg 4 mg Q6 PRN IV NAUSEA AND/OR VOMITING; Start 06/24/17 at 15:30 Acetaminophen (Ofirmev 1000mg/ 100ml Iv) 100 ml @ 400 mls/hr Q6H PRN IVPB FEVER GREATER THAN 100.6; Start 06/24/17 at 15:30 Hydralazine HCl (Apresoline) 10 mg Q6 PRN IV ELEVATED BLOOD PRESSURE Last administered on 06/28/17 02:55; Admin Dose 10 MG; Start 06/24/17 at 15:30 Famotidine 20 mg 20 mg BID IV Last administered on 06/28/17 08:41; Admin Dose 20 MG; Start 06/24/17 at 17:00 Dextrose/Sodium Chloride (D5-1/2ns) 1,000 ml @ 70 mls/hr [id number] IV Last administered on 06/28/17 06:28; Admin Dose 70 MLS/HR; Start 06/24/17 at 17:00 Miscellaneous Information (Pending Santyl Order For Wound Care) This patient hull... PRN PRN XX WOUND CARE; Start 06/24/17 at 18:00 IV Flush (NS 10 ml) 10 ml PRN PRN IV IV PROTOCOL; Start 06/25/17 at 19:00 ROSANA MIRELES MD Jun 28, 2017 14:09
--- NOTE | 2017-06-28 15:27 | PN ---
Date/Time of Note Date/Time of Note DATE: 06/28/17 TIME: 15:25 Assessment/Plan VTE Prophylaxis VTE Prophylaxis Intervention: SCD's Lines/Catheters IV Catheter Type (from Nrs): PICC Line Central line still needed: Yes Urinary Cath still in place: No Assessment/Plan Chief Complaint/Hosp Course Patient remains hemodynamically stable, no acute events overnight, G-tube placement upon GI lab availability Assessment/Plan -G-tube dislodgment and patient with dysphagia. Continue IV fluids. Dr. Mijares is following in gastroenterology consultation. Pending G-tube placement upon GI lab availability -History of stroke with contractures and chronic encephalopathy -History of respiratory failure with tracheostomy, continue cool aerosol via T- tube, continue breathing treatments -Chronic kidney disease Further recommendations based on clinical course. Plan of care discussed with Dr. Sims. Problems: Exam/Review of Systems Vital Signs Vitals Vital Signs Date Time Temp Pulse Resp B/P Pulse Ox O2 Delivery O2 Flow Rate FiO2 06/28/17 14:04 94 20 98 Aerosol 5.0 28 06/28/17 08:02 99.0 143/78 Intake and Output 06/27/17 06/27/17 06/28/17 15:00 23:00 07:00 Intake Total 860 ml 1000 ml Balance 860 ml 1000 ml Exam Constitutional: non-verbal Respiratory: normal air movement Cardiovascular: nl pulses Gastrointestinal: non-tender, other (G-tube stoma), soft Extremities: other (contracted) Neurological: other (Chronic encephalopathy) Results Result Diagram: 06/27/17 0507 06/27/17 0445 Medications Medications Current Medications Ondansetron HCl 4 mg 4 mg Q6 PRN IV NAUSEA AND/OR VOMITING; Start 06/24/17 at 15:30 Acetaminophen (Ofirmev 1000mg/ 100ml Iv) 100 ml @ 400 mls/hr Q6H PRN IVPB FEVER GREATER THAN 100.6; Start 06/24/17 at 15:30 Hydralazine HCl (Apresoline) 10 mg Q6 PRN IV ELEVATED BLOOD PRESSURE Last administered on 06/28/17 02:55; Admin Dose 10 MG; Start 06/24/17 at 15:30 Famotidine 20 mg 20 mg BID IV Last administered on 06/28/17 08:41; Admin Dose 20 MG; Start 06/24/17 at 17:00 Dextrose/Sodium Chloride (D5-1/2ns) 1,000 ml @ 70 mls/hr [id number] IV Last administered on 06/28/17 06:28; Admin Dose 70 MLS/HR; Start 06/24/17 at 17:00 Miscellaneous Information (Pending Santyl Order For Wound Care) This patient hull... PRN PRN XX WOUND CARE; Start 06/24/17 at 18:00 IV Flush (NS 10 ml) 10 ml PRN PRN IV IV PROTOCOL; Start 06/25/17 at 19:00 RAFAT MADDOX Jun 28, 2017 15:27
[2017-06-29] VITALS (9 sets, daily range): BP systolic 116–186; BP diastolic 64–97; PULSE 96–113; RESP 11–19
[2017-06-29 05:28] LABS: BASOPHIL # 0.1 10^3/ul (0.0-0.1); BASOPHILS % 1.4 % (0.0-2.0); EOSINOPHILS # 0.4 10^3/ul (0.0-0.5); EOSINOPHILS % 7.4 % (0.0-7.0); HEMATOCRIT 43.8 % (42.0-52.0); HEMOGLOBIN 14.3 g/dl (14.0-18.0); LYMPHOCYTES # 1.7 10^3/ul (0.8-2.9); LYMPHOCYTES % 29.4 % (15.0-51.0); MEAN CORPUSCULAR HEMOGLOBIN 29.8 pg (29.0-33.0); MEAN CORPUSCULAR HGB CONC 32.6 g/dl (32.0-37.0); MEAN CORPUSCULAR VOLUME 91.3 fl (82.0-101.0); MONOCYTE # 0.9 10^3/ul (0.3-0.9); MONOCYTES % 15.3 % (0.0-11.0); NEUTROPHIL # 2.7 10^3/ul (1.6-7.5); NEUTROPHILS % 46.3 % (39.0-77.0); PLATELET COUNT 270 10^3/UL (140-415); RED CELL DISTRIBUTION WIDTH 12.2 % (11.5-14.5); WHITE BLOOD COUNT 5.8 10^3/ul (4.8-10.8)
[2017-06-29] MEDS ORDERED: ALBUTEROL 0.083% (NEB) 2.5 MG/3 ML AMP HHN PRN (06:30)
[2017-06-29 06:44] LABS: CREATININE 1.12 mg/dl (0.61-1.24); POTASSIUM 3.3 mmol/L (3.5-5.1)
[2017-06-29] MEDS: FAMOTIDINE 20 MG INJ IV SCH ×2 (08:19→20:28)
[2017-06-29] MEDS ORDERED: POTASSIUM CHLORIDE 250 ML IVPB SCH (09:30)
[2017-06-29] MEDS ORDERED: PROPOFOL 20 ML ONE (10:12)
[2017-06-29] MEDS ORDERED: ONDANSETRON 4 MG INJ IV PRN (10:30)
[2017-06-29] MEDS ORDERED: EPHEDrine SULFATE 50 MG/5 ML SYG IV PRN (10:30)
[2017-06-29] MEDS ORDERED: LABETALOL HCL 20MG INJ IV PRN (10:30)
[2017-06-29] MEDS ORDERED: hydrALAzine 20 MG INJ IV PRN (10:30)
[2017-06-29] MEDS ORDERED: DIPHENHYDRAMINE 50 MG INJ IV PRN (10:30)
[2017-06-29] MEDS ORDERED: MEPERIDINE 25 MG INJ IV PRN (10:30)
[2017-06-29] MEDS ORDERED: FENTAnyl 50 MCG/ML VIAL IV PRN ×3 (10:30)
[2017-06-29] MEDS ORDERED: METOCLOPRAMIDE 10 MG INJ IV PRN (10:30)
--- NOTE | 2017-06-29 10:52 | CONS ---
Date/Time of Note Date/Time of Note DATE: 06/29/17 TIME: 10:50 Assessment/Plan Assessment/Plan Additional Assessment/Plan Assessment and recommendations; 1. Patient with a history of chronic respiratory failure admitted for G-tube dislodgment. Awaiting replacement today. Patient doing fairly well on tracheal T piece. 2. Advanced anoxic brain injury. Continue current treatment. [facility] to be transferred [facility] to [facility] after G-tube replacement. Consultation Date/Type/Reason Admit Date/Time Jun 24, 2017 at 09:57 Type of Consultation: Pulmonary 24 HR Interval Summary Free Text/Dictation Patient's condition stable. Awaiting G-tube replacement today. Patient has remained hemodynamically stable. General exam; middle-aged male, awake, but unresponsive to any commands. Exam/Review of Systems Vital Signs Vitals Vital Signs Date Time Temp Pulse Resp B/P Pulse Ox O2 Delivery O2 Flow Rate FiO2 06/29/17 10:30 98.3 96 18 186/96 100 Trach Collar 8.0 06/29/17 05:45 28 Intake and Output 06/28/17 06/28/17 06/29/17 15:00 23:00 07:00 Intake Total 1000 ml 630 ml Balance 1000 ml 630 ml Exam HEENT exam; supple neck, no JVD. No lymphadenopathy. Midline trachea. No thyromegaly. Tracheostomy in place. Insertion site is clean. Chest exam; clear to auscultation. S1-S2 audible, no murmurs. Regular rhythm. Abdomen exam; soft, dressing applied over epigastrium. Bowel sounds are audible. No organomegaly felt. Extremity exam; no edema. Patient does have contractures involving all 4 extremities. BAKERY MACHINE MECHANIC SUPERVISOR exam; patient remains awake but unresponsive to any commands. Results Result Diagram: 06/29/17 0505 06/29/17 0505 Results 24 hrs Laboratory Tests Test 06/29/17 05:05 White Blood Count 5.8 Red Blood Count 4.80 Hemoglobin 14.3 Hematocrit 43.8 Mean Corpuscular Volume 91.3 Mean Corpuscular Hemoglobin 29.8 Mean Corpuscular Hemoglobin Concent 32.6 Red Cell Distribution Width 12.2 Platelet Count 270 Mean Platelet Volume 11.0 H Neutrophils % 46.3 Lymphocytes % 29.4 Monocytes % 15.3 H Eosinophils % 7.4 H Basophils % 1.4 Nucleated Red Blood Cells % 0.0 Neutrophils # 2.7 Lymphocytes # 1.7 Monocytes # 0.9 Eosinophils # 0.4 Basophils # 0.1 Nucleated Red Blood Cells # 0.0 Sodium Level 142 Potassium Level 3.3 L Chloride Level 106 Carbon Dioxide Level 27 Anion Gap 12 Blood Urea Nitrogen 8 Creatinine 1.12 Glucose Level 103 Calcium Level 9.0 Medications Medications Current Medications Ondansetron HCl 4 mg 4 mg Q6 PRN IV NAUSEA AND/OR VOMITING; Start 06/24/17 at 15:30 Acetaminophen (Ofirmev 1000mg/ 100ml Iv) 100 ml @ 400 mls/hr Q6H PRN IVPB FEVER GREATER THAN 100.6; Start 06/24/17 at 15:30 Hydralazine HCl (Apresoline) 10 mg Q6 PRN IV ELEVATED BLOOD PRESSURE Last administered on 06/28/17 20:21; Admin Dose 10 MG; Start 06/24/17 at 15:30 Famotidine 20 mg 20 mg BID IV Last administered on 06/29/17 08:19; Admin Dose 20 MG; Start 06/24/17 at 17:00 Dextrose/Sodium Chloride (D5-1/2ns) 1,000 ml @ 70 mls/hr [id number] IV Last administered on 06/28/17 20:24; Admin Dose 70 MLS/HR; Start 06/24/17 at 17:00 Miscellaneous Information (Pending Santyl Order For Wound Care) This patient hull... PRN PRN XX WOUND CARE; Start 06/24/17 at 18:00 IV Flush 10 ml 10 ml PRN PRN IV IV PROTOCOL; Start 06/25/17 at 19:00 Potassium Chloride (KCl 40 MEQ/250 ML NS) 250 ml @ 62.5 mls/hr ONCE IVPB Last administered on 06/29/17 09:13; Admin Dose 62.5 MLS/HR; Start 06/29/17 at 09:30 ; Stop 06/29/17 at 13:29 RIMA ESQUIVEL Jun 29, 2017 10:52
--- NOTE | 2017-06-29 10:56 | OPPN ---
Date/Time of Note Date/Time of Note DATE: 06/29/17 TIME: 10:55 Proc Note GI Procedure Date 06/29/17 Pre-procedure Diagnosis Dislodgment of the G-tube Post-procedure Diagnosis Dysphagia Procedure Performed: Other (PEG PEG) Surgeon see signature line Licensing Officer none Anesthesia Type: MAC Tourniquet Time none EBL none Transfusion required none Grafts/Implants none Tubes/Drains none Complication(s) none Disposition: PACU Indications: other (Dislodgment of G-tube tube) Operative\Procedure Findings PEG ROSANA MIRELES MD Jun 29, 2017 10:56
--- NOTE | 2017-06-29 11:19 | GILP ---
DATE OF PROCEDURE: 06/29/2017 DESCRIPTION OF PROCEDURE: A 47-year-old male status post trach, had a G-tube which came out. The opening was completely obliterated. The purpose of this procedure is to put a new G- tube hopefully through the same opening. The risks of the procedure, related complication, anesthetic risks, and alternatives were discussed with the girlfriend and informed consent was obtained. The patient was brought to the GI lab, sedated by Dr. Valentin. After optimal sedation, scope was passed with much ease into the esophagus and advanced into the stomach and then into the duodenum. No evidence of obstruction. The internal stoma identified, external stoma was closed, cleaned thoroughly with chlorhexidine solution. The blue string passed with much ease into the stomach, which was snared and transendoscopically passed snared and the entire procedure was completed by modified Ponsky technique. The patient was rescoped, the position of the internal bumper confirmed, external bumper secured. No bleeding or any complication identified. Scope was removed with excellent patient tolerance. IMPRESSION: Successful placement of G-tube done through the same opening. PLAN: Abdominal binder and resume feeding through the G-tube. Dictated By: Daniel Mijares MD /caroline/ankita /Document#: [id number]
[2017-06-29] MEDS: DEXTROSE 5%-0.45% NACL 1,000 ML IV SCH (13:44)
--- NOTE | 2017-06-29 15:04 | PN ---
Date/Time of Note Date/Time of Note DATE: 06/29/17 TIME: 15:01 Assessment/Plan VTE Prophylaxis VTE Prophylaxis Intervention: SCD's Lines/Catheters [facility] PICC Line Central line still needed: Yes Urinary Cath still in place: No Assessment/Plan Chief Complaint/Hosp Course Patient is status post G-tube placement today, patient remains hemodynamically stable. Assessment/Plan -G-tube dislodgment and patient with dysphagia. Continue IV fluids. Dr. Mijares is following in gastroenterology consultation. S/p G-tube placement 06/29 , advanced G-tube feeding per GI, monitor residual, continue abdominal binder. -History of stroke with contractures and chronic encephalopathy -History of respiratory failure with tracheostomy, continue cool aerosol via T- tube, continue breathing treatments -Chronic kidney disease Further recommendations based on clinical course. Plan of care discussed with Dr. Sims. Problems: Exam/Review of Systems Vital Signs Vitals Vital Signs Date Time Temp Pulse Resp B/P Pulse Ox O2 Delivery O2 Flow Rate FiO2 06/29/17 13:45 98.0 116 18 151/72 98 06/29/17 11:53 5.0 06/29/17 11:48 Trach Collar 06/29/17 05:45 28 Intake and Output 06/28/17 06/28/17 06/29/17 15:00 23:00 07:00 Intake Total 1000 ml 630 ml Balance 1000 ml 630 ml Exam Constitutional: non-verbal Respiratory: normal air movement Cardiovascular: nl pulses Gastrointestinal: non-tender, other (G-tube), soft Extremities: other (contracted) Neurological: other (Chronic encephalopathy) Results Result Diagram: 06/29/17 0505 06/29/17 0505 Results 24 hrs Laboratory Tests Test 06/29/17 05:05 White Blood Count 5.8 Red Blood Count 4.80 Hemoglobin 14.3 Hematocrit 43.8 Mean Corpuscular Volume 91.3 Mean Corpuscular Hemoglobin 29.8 Mean Corpuscular Hemoglobin Concent 32.6 Red Cell Distribution Width 12.2 Platelet Count 270 Mean Platelet Volume 11.0 H Neutrophils % 46.3 Lymphocytes % 29.4 Monocytes % 15.3 H Eosinophils % 7.4 H Basophils % 1.4 Nucleated Red Blood Cells % 0.0 Neutrophils # 2.7 Lymphocytes # 1.7 Monocytes # 0.9 Eosinophils # 0.4 Basophils # 0.1 Nucleated Red Blood Cells # 0.0 Sodium Level 142 Potassium Level 3.3 L Chloride Level 106 Carbon Dioxide Level 27 Anion Gap 12 Blood Urea Nitrogen 8 Creatinine 1.12 Glucose Level 103 Calcium Level 9.0 Medications Medications Current Medications Ondansetron HCl 4 mg 4 mg Q6 PRN IV NAUSEA AND/OR VOMITING; Start 06/24/17 at 15:30 Acetaminophen (Ofirmev 1000mg/ 100ml Iv) 100 ml @ 400 mls/hr Q6H PRN IVPB FEVER GREATER THAN 100.6; Start 06/24/17 at 15:30 Hydralazine HCl (Apresoline) 10 mg Q6 PRN IV ELEVATED BLOOD PRESSURE Last administered on 06/28/17 20:21; Admin Dose 10 MG; Start 06/24/17 at 15:30 Famotidine 20 mg 20 mg BID IV Last administered on 06/29/17 08:19; Admin Dose 20 MG; Start 06/24/17 at 17:00 Dextrose/Sodium Chloride (D5-1/2ns) 1,000 ml @ 70 mls/hr [id number] IV Last administered on 06/29/17 13:44; Admin Dose 70 MLS/HR; Start 06/24/17 at 17:00 Miscellaneous Information (Pending Santyl Order For Wound Care) This patient hull... PRN PRN XX WOUND CARE; Start 06/24/17 at 18:00 IV Flush (NS 10 ml) 10 ml PRN PRN IV IV PROTOCOL; Start 06/25/17 at 19:00 RAFAT MADDOX Jun 29, 2017 15:04
[2017-06-30] MEDS: DEXTROSE 5%-0.45% NACL 1,000 ML IV SCH (01:48)
[2017-06-30 06:48] LABS: BASOPHIL # 0.1 10^3/ul (0.0-0.1); BASOPHILS % 0.7 % (0.0-2.0); EOSINOPHILS # 0.5 10^3/ul (0.0-0.5); EOSINOPHILS % 7.3 % (0.0-7.0); HEMATOCRIT 41.8 % (42.0-52.0); HEMOGLOBIN 13.9 g/dl (14.0-18.0); LYMPHOCYTES # 1.4 10^3/ul (0.8-2.9); LYMPHOCYTES % 20.1 % (15.0-51.0); MEAN CORPUSCULAR HEMOGLOBIN 30.8 pg (29.0-33.0); MEAN CORPUSCULAR HGB CONC 33.3 g/dl (32.0-37.0); MEAN CORPUSCULAR VOLUME 92.5 fl (82.0-101.0); MEAN PLATELET VOLUME 11.9 fl (7.4-10.4); MONOCYTES % 14.9 % (0.0-11.0); NEUTROPHIL # 3.9 10^3/ul (1.6-7.5); NEUTROPHILS % 56.9 % (39.0-77.0); PLATELET COUNT 224 10^3/UL (140-415); RED BLOOD COUNT 4.52 10^6/ul (4.70-6.10); RED CELL DISTRIBUTION WIDTH 12.1 % (11.5-14.5); WHITE BLOOD COUNT 6.9 10^3/ul (4.8-10.8)
[2017-06-30 07:11] LABS: CALCIUM 8.9 mg/dl (8.4-10.2); CREATININE 1.12 mg/dl (0.61-1.24); POTASSIUM 3.6 mmol/L (3.5-5.1)
[2017-06-30 07:28] VITALS: BP 144/101; RESP 18
[2017-06-30] MEDS: FAMOTIDINE 20 MG INJ IV SCH (08:17)
[2017-06-30] MEDS: hydrALAzine 20 MG INJ IV PRN (14:06)
[2017-06-30 14:08] VITALS: BP 180/92; RESP 20
[2017-07-01] MEDS ORDERED: LANSOPRAZOLE 30 MG CAP GTB SCH (06:00)
--- NOTE | 2017-07-02 21:08 | DS ---
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 HPI supplemented by reviewing past medical history senior care records. Patient is a poor historian due to his altered mental status. No reported fever, chills, vomiting reported Hospital Course -G-tube dislodgment and patient with dysphagia. Continue IV fluids. Dr. Mijares is following in gastroenterology consultation. S/p G-tube placement 06/29 , advanced G-tube feeding per GI, monitor residual, continue abdominal binder. -History of stroke with contractures and chronic encephalopathy -History of respiratory failure with tracheostomy, continue cool aerosol via T- tube, continue breathing treatments -Chronic kidney disease Home Meds Reported Medications Acetaminophen* (Acetaminophen* Susp) 160 Mg/5 Ml Oral.susp, 640 MG GTB Q4 Y for PAIN OR TEMP ABOVE 38C, ML 06/24/17 Hypromellose (Pure & Gentle Eye Drops) 15 Ml Drops, 1 DROP OP QID, BOTTLE 06/24/17 Sennosides* (Senna Lax*) 8.6 Mg Tablet, 2 TAB GTB QHS, TAB 06/24/17 Clonidine Hcl* (Clonidine Hcl*) 0.1 Mg Tab, 0.1 MG GTB Q8, TAB HOLD SBP<110 06/24/17 Docusate Sodium* (Colace*) 100 Mg Capsule, 100 MG GTB BID, #60 CAP 06/24/17 Atorvastatin Calcium (Atorvastatin Calcium) 10 Mg Tablet, 10 MG GTB QHS, #30 TAB 06/24/17 Metoprolol Tartrate* (Lopressor*) 50 Mg Tab, 50 MG GTB BID, #60 TAB 06/24/17 Clopidogrel Bisulfate (Clopidogrel) 75 Mg Tablet, 75 MG GTB DAILY, #30 TAB 06/24/17 Amlodipine Besylate* (Amlodipine Besylate*) 10 Mg Tablet, 10 MG GTB DAILY, #30 TAB HOLD SBP<110 06/24/17 Follow-up Plan Follow-up with PMD in 1-2 weeks Primary Care Provider Not On Staff Doctor Time spent on discharge: > 30 minutes RAFAT MADDOX Jul 02, 2017 21:08
== END 2017-06-30 14:30 | DRG 393 ==
LOC: E/R 09:00 → MS2 09:57
PROVIDERS: ADMIT Internal Medicine; ATTEND Internal Medicine
PROC: 02HV33Z Insertion of Infusion Device into Superior Vena Cava, Percutaneous Approach (ICD-10-PCS; principal; 2017-06-25)
PROC: 0DH68UZ Insertion of Feeding Device into Stomach, Via Natural or Artificial Opening Endoscopic (ICD-10-PCS; 2017-06-29)
DX: K94.23 Gastrostomy malfunction (principal); G93.49 Other encephalopathy; G93.1 Anoxic brain damage, not elsewhere classified; J96.10 Chronic respiratory failure, unspecified whether with hypoxia or hypercapnia; Z93.0 Tracheostomy status; R13.10 Dysphagia, unspecified; I12.9 Hypertensive chronic kidney disease with stage 1 through stage 4 chronic kidney disease, or unspecified chronic kidney disease; N18.9 Chronic kidney disease, unspecified; E86.0 Dehydration; I69.969 Other paralytic syndrome following unspecified cerebrovascular disease affecting unspecified side
CPT/HCPCS: 36415; 36569; 71010; 76937; 80048; 80053; 83690; 84484; 85025; 85610; 87081; 93005; 94664; 96374; C1769; J0360; J3480; J7030; J7042